=== PATIENT | female | born 1940 | race Caucasian/White ===

== ENCOUNTER 2019-05-17 13:41 | Emergency (ER) | payer OTHER, MEDICARE ==
[2019-05-17] MEDS ORDERED: Atropine 0.1 MG/ML 10 ML Syringe IVPUSH ONE (14:01)
--- NOTE | 2019-05-17 14:47 | CR ---
EXAMINATION: Portable chest radiograph. HISTORY: Pain. FINDINGS: The trachea is midline. Heart is borderline in size for technique. Mild interstitial prominence without a focal consolidation. Calcified granuloma within the right lung base. Defibrillator pads noted. Likely left basilar atelectasis. Osseous structures appear osteopenic. IMPRESSION: 1. Borderline cardiomegaly with mild interstitial prominence.
--- NOTE | 2019-05-17 14:55 | EDM.PDOC ---
ED HPI GENERAL MEDICAL PROBLEM - General Chief Complaint: Cardiovascular Problem Stated Complaint: SOB,CHEST PAIN Time Seen by Provider: 05/17/19 14:51 Source of Information: Reports: Patient - History of Present Illness INITIAL COMMENTS - FREE TEXT/NARRATIVE: HISTORY AND PHYSICAL: History of present illness: []Patient presents with lightheaded dizziness and weakness with exertion no shortness of breath or diaphoresis no chest pain, symptoms began a couple of days ago she has traveled here from [place] visiting family symptoms more notable today with prompts her visits to ER history of hypertension on propranolol Babita Zamorano Review of systems: As per history of present illness and below otherwise all systems reviewed and negative. Past medical history: As per history of present illness and as reviewed below otherwise noncontributory. Surgical history: As per history of present illness and as reviewed below otherwise noncontributory. Social history: No reported history of drug or alcohol abuse. Family history: As per history of present illness and as reviewed below otherwise noncontributory. Physical exam: HEENT: Atraumatic, normocephalic, pupils reactive, negative for conjunctival pallor or scleral icterus, mucous membranes moist, throat clear, neck supple, nontender, trachea midline. Lungs: Clear to auscultation, breath sounds equal bilaterally, chest nontender. Heart: S1S2, regular, negative for clicks, rubs, or JVD. Abdomen: Soft, nondistended, nontender. Negative for masses or hepatosplenomegaly. Negative for costovertebral tenderness. Pelvis: Stable nontender. Genitourinary: Deferred. Rectal: Deferred. Extremities: Atraumatic, negative for cords or calf pain. Neurovascular unremarkable. Neuro: Awake, alert, oriented. Cranial nerves II through XII unremarkable. Cerebellum unremarkable. Motor and sensory unremarkable throughout. Exam nonfocal. Diagnostics: [CBC CMP UA troponin EKG Chest 1 view ] Therapeutics: [ with elevated troponin have elected to transfer patient to [place] er, are currently out of ground ambulance as patient will be transferred by flight ] Impression: [ 2-1 AV block Elevated troponin Chronic history at baseline] Definitive disposition and diagnosis as appropriate pending reevaluation and review of above. - Related Data Allergies Allergy/AdvReac Type Severity Reaction Status Date / Time codeine Allergy Nausea Verified 05/17/19 14:16 Penicillins Allergy Rash Verified 05/17/19 14:15 Home Meds: Home Meds Biotin 5,000 mcg PO DAILY 05/17/19 [History] Calcium Carb & Citrate/Vit D3 [Citracal + D ER] 1 each PO DAILY 05/17/19 [ History] Denosumab [Prolia] 60 mg .XX ASDIRECTED 05/17/19 [History] Hydroxychloroquine Sulfate [Plaquenil] 200 mg PO BID 05/17/19 [History] Losartan Potassium [Cozaar] 100 mg PO DAILY 05/17/19 [History] Pantoprazole Sodium [Protonix] 5 mg PO DAILY 05/17/19 [History] Propranolol [Inderal] 20 mg PO BID 05/17/19 [History] amLODIPine [Norvasc] 5 mg PO DAILY 05/17/19 [History] cycloSPORINE [Restasis] 1 each .XX BID 05/17/19 [History] Past Medical History Cardiovascular History: Reports: Hypertension Gastrointestinal History: Reports: Diverticulosis Genitourinary History: Reports: None ASSESSMENT RN History: Reports: Musculoskeletal History: Reports: Arthritis Neurological History: Reports: None Endocrine/Metabolic History: Reports: None Hematologic History: Reports: None - Infectious Disease History Infectious Disease History: Reports: Chicken Pox, Measles, Mumps - Past Surgical History GI Surgical History: Reports: Other (See Below) Other GI Surgeries/Procedures: Sigmoid colon removal Female Surgical History: Reports: Hysterectomy Social & Family History - Family History Family Medical History: Noncontributory - Tobacco Use Smoking Status *Q: Never Smoker Second Hand Smoke Exposure: No - Caffeine Use Caffeine Use: Reports: Coffee - Recreational Drug Use Recreational Drug Use: No ED ROS GENERAL - Review of Systems Review Of Systems: See Below ED EXAM, GENERAL - Physical Exam Exam: See Below Course - Vital Signs Last Recorded V/S: Last Vital Signs Temp 97.6 F 05/17/19 14:22 Pulse 41 L 05/17/19 14:39 Resp 16 05/17/19 14:39 BP 121/50 L 05/17/19 14:39 Pulse Ox 95 05/17/19 14:39 - Orders/Labs/Meds Orders: Active Orders 24 hr Category Date Time Status EKG Documentation Completion [RC] STAT Care 05/17/19 13:44 Active UA RFX NAKIA AND CULT IF INDIC [URIN] Stat Lab 05/17/19 13:44 Ordered Labs: Laboratory Tests 05/17/19 05/17/19 05/17/19 Range/Units 13:53 13:53 13:53 WBC 9.25 (4.0-11.0) K/uL RBC 3.64 L (4.30-5.90) M/uL Hgb 11.1 L (12.0-16.0) g/dL Hct 34.5 L (36.0-46.0) % MCV 94.8 (80.0-98.0) fL MCH 30.5 (27.0-32.0) pg MCHC 32.2 (31.0-37.0) g/dL RDW Std Deviation 47.2 (28.0-62.0) fl RDW Coeff of Adrian 14 (11.0-15.0) % Plt Count 255 (150-400) K/uL MPV 11.30 (7.40-12.00) fL Neut % (Auto) 65.7 (48.0-80.0) % Lymph % (Auto) 22.5 (16.0-40.0) % Dickson % (Auto) 9.8 (0.0-15.0) % Eos % (Auto) 1.8 (0.0-7.0) % Baso % (Auto) 0.2 (0.0-1.5) % Neut # (Auto) 6.1 H (1.4-5.7) K/uL Lymph # (Auto) 2.1 (0.6-2.4) K/uL Dickson # (Auto) 0.9 H (0.0-0.8) K/uL Eos # (Auto) 0.2 (0.0-0.7) K/uL Baso # (Auto) 0.0 (0.0-0.1) K/uL Nucleated RBC % 0.0 /100WBC Nucleated RBCs # 0 K/uL INR 1.02 Sodium 141 (136-145) mmol/L Potassium 3.9 (3.5-5.1) mmol/L Chloride 104 (98-107) mmol/L Carbon Dioxide 24.6 (21.0-32.0) mmol/L BUN 32 H (7.0-18.0) mg/dL Creatinine 1.0 (0.6-1.0) mg/dL Est Cr Clr Drug Dosing 37.73 mL/min Estimated GFR (MDRD) 53.5 ml/min Glucose 128 H (74-106) mg/dL Calcium 9.5 (8.5-10.1) mg/dL Total Bilirubin 0.5 (0.2-1.0) mg/dL AST 155 H (15-37) IU/L ALT 147 H (14-63) IU/L Alkaline Phosphatase 108 (46-116) U/L Troponin I 1.646 H* (0.000-0.056) ng/mL Total Protein 6.9 (6.4-8.2) g/dL Albumin 3.8 (3.4-5.0) g/dL Globulin 3.1 (2.6-4.0) g/dL Albumin/Globulin Ratio 1.2 (0.9-1.6) Meds: Medications Discontinued Medications Generic Name Dose Route Start Last Admin Trade Name Freq PRN Reason Stop Dose Admin Atropine Sulfate 0.5 mg 05/17/19 14:01 Atropine 0.1 Mg/Ml IVPUSH 05/17/19 14:02 ONETIME ONE Departure - Departure Time of Disposition: 14:53 Disposition: DC/Tfer to Acute Hospital 02 Reason for Transfer *Q: Other Condition: Fair Clinical Impression: AV block, Bradycardia, Elevated troponin - My Orders Last 24 Hours: My Active Orders 05/17/19 13:44 EKG Documentation Completion [RC] STAT UA RFX NAKIA AND CULT IF INDIC [URIN] Stat - Assessment/Plan Last 24 Hours: My Active Orders 05/17/19 13:44 EKG Documentation Completion [RC] STAT UA RFX NAKIA AND CULT IF INDIC [URIN] Stat
== END 2019-05-17 15:30 ==
LOC: MW.ED 13:41
DX: I44.30 Unspecified atrioventricular block (principal); R79.89 Other specified abnormal findings of blood chemistry; Z88.5 Allergy status to narcotic agent; Z88.0 Allergy status to penicillin
CPT/HCPCS: 36415; 71045; 71045-26; 80053; 81001; 84484; 85025; 85610; 87086; 93005; 99285-25